=== PATIENT | female | born 1930 | race Caucasian/White ===

== ENCOUNTER → 2016-07-08 10:10 | Outpatient (CLI) | payer MEDICARE, BC | END | disposition home or self-care (01) | LOC: D.US 10:00 | DX: N63 Unspecified lump in breast (principal) ==

== ENCOUNTER 2017-08-16 21:43 | Inpatient (IN) | payer MEDICARE, BC ==
[~2017-08-16] VITALS: Ht 170.2 cm; Wt 61.4 kg
--- NOTE | ~2017-08-16 | HEMODYNAMI ---
PATIENT:LAUREN SOSA MEDICAL RECORD: [id number] : [birth year] LOCATION:[facility] D.2118 ADMISSION DATE: 08/17/17 Generatedon:08/17/201712:10 Patient name: LAUREN SOSA Patient #: [id number] SSN: : Date of study: 08/17/2017 Page: Of Hemodynamic Procedure Report Patient Data Patient Demographics Procedure consent was obtained First Name: LAUREN Gender: Female Last Name: IAN : 1930 Patient #: [id number] Age: 87 year(s) Race: Unknown Additional ID: [id number] Contact details [address]: [address] [place] [address] [address] State: [place] City: [place] Zip code: [address] Admission Admission Data Admission Date: 08/17/2017 Admission Time: 0:27 Room #: D.2118 Procedure Procedure Types Cath Procedure Diagnostic Procedure PPM/ICD PPM Dual Implant Procedure Description Procedure Date Procedure Date: 08/17/2017 Procedure Start Time: 11:40 Procedure End Time: 12:08 Procedure Staff Name Function Artur Terry MD Performing Physician Dmitry Beltran RT Monitor Ken Omalley RN Nurse Joanne Mukherjee RT Scrub Procedure Data Cath Procedure Fluoroscopy Diagnostic fluoroscopy Total fluoroscopy Time: 2.9 time: 2.9 min min Diagnostic fluoroscopy Total fluoroscopy dose: 34 dose: 34 mGy mGy Contrast Material Contrast Material Type Amount (ml) Visipaque 270 10 Estimated blood loss: 5 ml Procedure Complications No complications Procedure Medications Medication Administration Route Dosage Oxygen etCO2 Nasal cannula 2 l/min Ancef (1Gm/50ml NS) I.V.P.B 1 g Ancef Irrigation Topical 1 g (1gm/500ml NS) Fentanyl I.V. 50 mcg Versed I.V. 1 mg Fentanyl I.V. 50 mcg Versed I.V. 1 mg Hemodynamics Rest Heart Rate: 34 (bpm) Snapshots Pre Cath Intra NCS Post Cath Vital Signs Time Heart Resp SPO2 etCO2 NIBP (mmHg) Rhythm Pain Sedation Rate (ipm) (%) (mmHg) Status Level (bpm) 11:26:23 34 18 0 184/67(129) NSR 0 (11) 10(A) , No pain 11:30:33 33 15 0 169/65(121) NSR 0 (11) 10(A) , No pain 11:35:34 34 19 94 0 179/68(130) NSR 0 (11) 10(A) , No pain 11:39:34 37 17 96 0 166/87(118) NSR 0 (11) 9(A) , No pain 11:44:56 32 17 98 0 148/58(99) NSR 0 (11) 9(A) , No pain 11:53:03 31 17 95 0 145/56(98) NSR 0 (11) 9(A) , No pain 12:05:18 72 19 95 0 181/87(137) NSR 0 (11) 9(A) , No pain 12:09:45 89 17 94 0 180/100(138) NSR 0 (11) 10(A) , No pain Medications Time Medication Route Dose Verified Delivered Reason Notes Effective ness by by 11:25:02 Oxygen etCO2 2 Artur Ken Per Nasal l/min Harrison Omalley RN physician cannula 11:30:24 Ancef I.V.P.B 1 g Artur Ken Per (1Gm/50ml Harrison Omalley RN physician NS) 11:30:38 Ancef Topical 1 g Artur Ken used for Irrigation Harrison Omalley RN procedure (1gm/500ml NS) 11:37:18 Fentanyl I.V. 50 Artur Ken for mcg Harrison Omalley RN sedation 11:37:26 Versed I.V. 1 mg Artur Ken for Harrison Omalley RN sedation 11:43:05 Fentanyl I.V. 50 Artur Ken for mcg Harrison Omalley RN sedation 11:43:09 Versed I.V. 1 mg Artur Ken for Harrison Omalley RN sedation Procedure Log Time Note 10:50:13 Ken Omalley RN sent for patient. Start room use. 11:04:22 Time tracking: Regular hours (M-F 7:00 - 5:00) 11:04:26 Plan of Care:Hemodynamics will remain stable., Cardiac rhythm will remain stable., Comfort level will be maintained., Respiratory function will remain adequate., Patient/ family verbilizes understanding of procedure., Procedure tolerated without complication., Recovers from procedure without complications.. 11:04:31 Patient received from PCU to CCL 3 Alert and oriented. Tansferred to table in Supine position. 11:04:32 Warm blankets applied, and tony hugger turned on for patient comfort. 11:04:32 Correct patient and procedure confirmed by team. 11:04:33 Signed procedure consent form obtained from patient. 11:04:34 ECG and BP/O2 sat monitors applied to patient. 11:04:35 Full Disclosure recording started 11:10:32 Vital chart was started 11:14:04 Vital chart was stopped 11:15:26 [employer] sales representative advertising Dar CruzOksana present for procedure. 11:15:36 Baseline sample Acquired. 11:15:41 Rhythm: sinus bradycardia 11:15:48 H&P Date Dictated: 08/16/2017 Within 30 days and on chart.. 11:15:48 Pre-procedure instructions explained to patient. 11:15:49 Pre-op teaching completed and patient verbalized understanding. 11:15:50 Family in patients room. 11:23:46 Vital chart was started 11:25:02 Oxygen 2 l/min etCO2 Nasal cannula was administered by Ken Omalley RN; Per physician; 11:30:24 Ancef (1Gm/50ml NS) 1 g I.V.P.B was administered by Ken Omalley RN; Per physician; 11:30:38 Ancef Irrigation (1gm/500ml NS) 1 g Topical was administered by Ken Omalley RN; used for procedure; 11:30:52 Patient NPO since Midnight. 11:30:53 Is the patient allergic to Iodine/contrast media? No. 11:31:06 Is patient on blood thinner?No 11:31:08 Patient diabetic? No. 11:31:10 Previous problem with sedation/anesthesia? No ? 11:31:10 Snore? No 11:31:11 Sleep apnea? No 11:31:12 Deviated septum? No 11:31:13 Opens mouth fully? Yes 11:31:13 Sticks out tongue? Yes 11:31:15 Airway obstruction? No ? 11:31:16 Dentures? No ? 11:31:19 Patient pain scale 0/10 ?. 11:31:27 IV right forearm D/C'd due to infiltration. 11:31:59 IV started by Ken Omalley RN inleft forearm with a 20 gauge IV catheter with 0.9% NaCl at KVO. 11:32:10 IV started by Ken Omalley RN inright antecubital with a 18 gauge IV catheter with 0.9% NaCl at KVO. 11:32:12 IV CATHETER 18G opened to sterile field. 11:32:12 IV Extension Set opened to sterile field. 11:32:12 IV CATHETER 20g opened to sterile field. 11:32:12 Lab results completed and on chart. 11:32:25 Left chest area was prepped with chlora-prep and draped in sterile fashion 11:32:27 Alarms reviewed by R. N. 11:32:27 Sharps counted by scrub and verified by R.N. 11:32:40 --------ALL STOP TIME OUT------ 11:32:41 Final Timeout: patient, procedure, and site verified with staff and physician. All members of the team are in agreement. 11:32:45 Left chest site verified by team. 11:32:51 Physical assessment completed. ASA score P 2 - A patient with mild systemic disease as per Artur Terry MD. 11:32:55 Sedation plan: IV Moderate Sedation Medication:Versed, Fentanyl 11:37:18 Fentanyl 50 mcg I.V. was administered by Ken Omalley RN; for sedation; 11:37:26 Versed 1 mg I.V. was administered by Ken Omalley RN; for sedation; 11:39:48 Pre sharps counted by scrub and verified by RN: Sutures: 2; Sponges: 5; Stick needles: 4; Skin needles: 2; Blade: 1; Cautery: 1 11:39:53 Grounding pad site Left thigh. 11:39:54 Grounding pad site free from injury. 11:39:58 Procedure started. 11:40:01 Lidocaine 2% was administered to left subclavicular area by Artur Terry MD . 11:40:17 Incision made to left subclavicular area. 11:40:22 Use device set [facility] 11:40:38 Cautery Pushbutton Pencil opened to sterile field. 11:40:39 Cautery Tip Motor Vehicle Examiner opened to sterile field. 11:40:42 Tegaderm 4 x 4 (1626W) opened to sterile field. 11:40:43 Stapler Skin 35W Proximate Plus (PMW35) opened to sterile field. 11:40:47 Immobilizer Large opened to sterile field. 11:40:49 2-0 Vicryl Plus [id number] opened to sterile field. 11:40:50 2-0 Silk 685H opened to sterile field. 11:42:25 MICROPUNCTURE 4FR [employer] ([id number]) opened to sterile field. 11:43:05 Fentanyl 50 mcg I.V. was administered by Ken Omalley RN; for sedation; 11:43:09 Versed 1 mg I.V. was administered by Ken Omalley RN; for sedation; 11:43:32 Generator pocket made/opened. 11:43:40 MICROPUNCTURE 4FR Cook ([id number]) opened to sterile field. 11:44:04 Medtronic Advisa MRI PPM Dual Generator [id number] opened to sterile field. 11:44:05 Medtronic 4074-52 PPM Lead opened to sterile field. 11:44:06 Medtronic 5076-45 PPM Lead opened to sterile field. 11:44:13 Access obtained with 4Fr micropunture. 11:44:20 Left subclavian vein accessed with 7Fr Peel Away Sheath. 11:46:12 Access obtained with 4Fr micropunture. 11:46:18 Ventricular lead inserted and advanced. 11:46:36 Left subclavian vein accessed with 7Fr Peel Away Sheath. 11:46:40 Atrial lead inserted and advanced. 11:46:43 Peel-a-way sheath was split and removed. 11:46:43 Peel-a-way sheath was split and removed. 11:48:38 Ventricular lead positioned. 11:48:41 Ventricular lead tested. 11:53:46 Atrial lead positioned. 11:53:48 Atrial lead tested. 11:58:14 Ventricular lead attachment was completed with 2-0 silk. 11:58:19 Atrial lead attachment was completed with 2-0 silk. 12:01:30 PPM Dual was attached to lead(s) and inserted into pocket. 12:01:34 Device pocket was irrigated with Ancef. 12:01:38 Generator was sutured in place with 2-0 silk. 12:03:55 Subcutaneous closure was completed with 2-0 vicryl. 12:05:11 Skin closure was completed with 35mm [place]. 12:05:29 Procedure ended.(Physican Out) 12:06:04 Post sharps counted by scrub and verified by RN: Sutures: 2; Sponges: 5; Stick needles: 4; Skin needles: 2; Blade: 1; Cautery: 1 12:06:15 Fluoroscopy time 02.90 minutes. 12:06:19 Fluoroscopy dose: 34 mGy 12:06:19 Flurop Dose total: 34 12:06:25 Contrast amount:Visipaque 270 10ml. 12:06:49 Sharps counted by scrub and verified by R.N. 12:06:53 Insertion/operative site no bleeding no hematoma. 12:07:00 Post-op/insertion site Left Chest area dressed using a 4 x 4 and Tegaderm. 12:07:11 Post-procedure physical assessment completed. ASA score P 2 - A patient with mild systemic disease as per Artur Terry MD. 12:07:14 Post procedure rhythm: paced 12:07:16 Estimated blood loss: 5 ml 12:07:17 Post procedure instruction explained to patient.Patient verbalizes understanding. 12:07:18 Patient needs reinforcement of post procedure teaching. 12:07:25 Procedure and supply charges have been captured, reviewed, submitted and are correct. 12:07:27 Procedure Complication : No complications 12:08:02 See physician's report for complete and final results. 12:08:28 Report given to PCU. 12:08:31 Patient transfered to PCU with Bed. 12:08:39 Procedure ended. 12:08:39 Full Disclosure recording stopped 12:10:31 End room use (Document Last) 12:10:46 Vital chart was stopped Device Usage Item Name Manufacture Quantity Catalog Hospital Part Current Minima l Lot# / Number Charge Number Stock Stock Serial# Code Cautery Microtek 1 [id number] 63350 [id number] 5 [employer] Pencil Cautery Tip Microtek 1 [id number] 293076 103593 706597 5 [employer] Tegaderm 4 x 3M 1 1626W 911906 140337 214591 5 4 (1626W) Stapler Skin Unknown 1 PMW35 075121 859354 773143 5 35W Proximate Plus (PMW35) Immobilizer Cardinal 1 [id number] 736552 629163 572512 5 Large Health 2-0 Vicryl Ethicon 1 [id number] 188232 642343 795961 5 Plus PSE609 2-0 Silk 685H Ethicon 1 685H 284971 04523 460480 5 MICROPUNCTURE [facility] 2 [id number] 409996 043316 513513 5 4FR [place] (H96334) Medtronic Medtronic 1 A2DR01 282569 609739 5 [id number] Advisa MRI EXP PPM Dual 10-04-18 Generator A2DR01 Medtronic Medtronic 1 4074-52 138097 659758 5 [id number] 4074-52 PPM EXP Lead 01-28-19 Medtronic Medtronic 1 5076-45 535546 101635 5 [id number] 5076-45 PPM EXP Lead 19 IV CATHETER B. Shoemaker 1 [id number] 484303 364022 343062 5 18G IV CATHETER B. Shoemaker 1 7101875-91 551396 294632 679505 5 20g IV Extension Hospira 1 35647-00 990266 46696 421720 5 Set Signature Audit Clyman Stage Time Signature Unsigned Intra-Procedure 08/17/2017 Dmitry Beltran 12:10:42 PM RT(R) Signatures Monitor : Dmitry Beltran RT Signature : Date : Time : [facility] [address] [place] [address]
[2017-08-16 23:29] LABS: BASOPHILS 0.5 % (0-2); EOSINOPHILS 1.1 % (0-7); HEMATOCRIT 24.2 % (36.0-48.0); HEMOGLOBIN 7.6 g/dL (12-16); IMMATURE GRANULOCYTES 0.5 % (0-5); MCH 24.3 pg (26.0-34.0); MCHC 31.4 g/dL (31.0-37.0); MCV 77.3 fL (80.0-100.0); MEAN PLATELET VOLUME 9.6 fL (7.4-10.4); MONOCYTES 10.6 % (2-11); NEUTROPHILS 53.3 % (40-80); PLATELET COUNT 273 10x3/uL (130-400); RBC 3.13 10x6/uL (4.00-5.40); RDW 16.1 % (11.5-14.5); WBC 6.4 10x3/uL (4.8-10.8)
[2017-08-16 23:52] LABS: CALC OSMOLALITY 285 mosm/kg (275-300); CALCIUM 8.7 mg/dL (8.5-10.1); CARBON DIOXIDE 22.6 mmol/L (21.0-32.0); CHLORIDE - SERUM 105 mmol/L (98-107); CREATINE KINASE 60 UL (21-215); CREATININE - SERUM 2.3 mg/dL (0.6-1.3); GLUCOSE 109 mg/dL (74-106); POTASSIUM - SERUM 4.9 mmol/L (3.5-5.1); SODIUM 136 mmol/L (136-145); UREA NITROGEN 50 mg/dL (7-18); eGFR NON AFRICAN AMERICAN 21 mL/min (90-120)
[2017-08-17] LABS: TROPONIN-I < 0.017 ng/mL (0.000-0.060)
[2017-08-17] MEDS ORDERED: MAXZIDE 75/501 TAB PO (01:37)
[2017-08-17] MEDS ORDERED: ATIVAN0.5 MG PO (01:37)
[2017-08-17] MEDS ORDERED: CATAPRES0.1 MG PO (01:37)
[2017-08-17] MEDS ORDERED: MECLIZINE HCL25 MG PO (01:38)
[2017-08-17] MEDS ORDERED: ZANTAC150 MG PO (01:38)
[2017-08-17] MEDS ORDERED: ULTRAM50 MG PO (01:38)
[2017-08-17 01:43] VITALS: BP 133/53; Ht 170.2 cm; Wt 61.4 kg
[2017-08-17 04:00] VITALS: BP 122/60
[2017-08-17 06:21] LABS: BASOPHILS 0.6 % (0-2); EOSINOPHILS 1.6 % (0-7); HEMATOCRIT 24.3 % (36.0-48.0); HEMOGLOBIN 7.6 g/dL (12-16); IMMATURE GRANULOCYTES 0.3 % (0-5); LYMPHOCYTES 33.7 % (15-50); MCH 24.1 pg (26.0-34.0); MCHC 31.3 g/dL (31.0-37.0); MCV 77.1 fL (80.0-100.0); MEAN PLATELET VOLUME 10.1 fL (7.4-10.4); MONOCYTES 10.7 % (2-11); NEUTROPHILS 53.1 % (40-80); PLATELET COUNT 292 10x3/uL (130-400); RBC 3.15 10x6/uL (4.00-5.40); RDW 16.2 % (11.5-14.5); WBC 6.9 10x3/uL (4.8-10.8)
[2017-08-17 06:47] LABS: ALBUMIN 3.2 g/dL (3.4-5.0); ALKALINE PHOSPHATASE 59 U/L (46-116); ALT (SGPT) 132 U/L (10-68); CALC OSMOLALITY 288 mosm/kg (275-300); CALCIUM 8.6 mg/dL (8.5-10.1); CARBON DIOXIDE 22.9 mmol/L (21.0-32.0); CHLORIDE - SERUM 108 mmol/L (98-107); CREATINE KINASE 56 UL (21-215); GLUCOSE 96 mg/dL (74-106); MAGNESIUM - SERUM 2.2 mg/dL (1.8-2.4); POTASSIUM - SERUM 4.8 mmol/L (3.5-5.1); PROTEIN - SERUM 6.3 g/dL (6.4-8.2); SODIUM 139 mmol/L (136-145); TROPONIN-I < 0.017 ng/mL (0.000-0.060); UREA NITROGEN 44 mg/dL (7-18); eGFR NON AFRICAN AMERICAN 25 mL/min (90-120)
[2017-08-17 09:25] VITALS: BP 149/89
[2017-08-17 20:00] VITALS: BP 164/79
[2017-08-17 22:21] LABS: HEMATOCRIT 32.9 % (36.0-48.0); HEMOGLOBIN 10.6 g/dL (12-16)
[2017-08-18] VITALS: BP 137/63
[2017-08-18 04:00] VITALS: BP 128/66
[2017-08-18 04:18] LABS: BASOPHILS 0.3 % (0-2); EOSINOPHILS 2.4 % (0-7); HEMATOCRIT 29.9 % (36.0-48.0); HEMOGLOBIN 9.7 g/dL (12-16); IMMATURE GRANULOCYTES 0.3 % (0-5); LYMPHOCYTES 23.5 % (15-50); MCH 25.5 pg (26.0-34.0); MCHC 32.4 g/dL (31.0-37.0); MCV 78.5 fL (80.0-100.0); MEAN PLATELET VOLUME 8.9 fL (7.4-10.4); MONOCYTES 9.5 % (2-11); RDW 15.7 % (11.5-14.5); WBC 7.8 10x3/uL (4.8-10.8)
[2017-08-18 04:38] LABS: ANION GAP 12.1 mmol/L (8-16); BILIRUBIN - TOTAL 0.56 mg/dL (0.2-1.3); CALCIUM 8.7 mg/dL (8.5-10.1); CARBON DIOXIDE 26.8 mmol/L (21.0-32.0); PLATELET COUNT 212 10x3/uL (130-400); POTASSIUM - SERUM 3.9 mmol/L (3.5-5.1); PROTEIN - SERUM 6.4 g/dL (6.4-8.2); RBC 3.81 10x6/uL (4.00-5.40)
[2017-08-18 08:00] VITALS: BP 127/79
[2017-08-18 11:02] VITALS: BP 122/64
== END 2017-08-18 11:40 | DRG 244 ==
LOC: D.ER 21:43 → D.M2 08-17 00:27
PROVIDERS: Family Medicine; Internal Medicine Cardiovascular Disease
PROC: 02H63JZ Insertion of Pacemaker Lead into Right Atrium, Percutaneous Approach (ICD-10-PCS; 2017-08-17)
PROC: 02HK3JZ Insertion of Pacemaker Lead into Right Ventricle, Percutaneous Approach (ICD-10-PCS; 2017-08-17)
PROC: 0JH606Z Insertion of Pacemaker, Dual Chamber into Chest Subcutaneous Tissue and Fascia, Open Approach (ICD-10-PCS; principal; 2017-08-17 11:30)
DX: I44.2 Atrioventricular block, complete (principal); R00.1 Bradycardia, unspecified; F03.90 Unspecified dementia, unspecified severity, without behavioral disturbance, psychotic disturbance, mood disturbance, and anxiety; K21.9 Gastro-esophageal reflux disease without esophagitis; I10 Essential (primary) hypertension; D64.9 Anemia, unspecified

== ENCOUNTER 2017-08-30 09:37 | Inpatient (IN) | payer MEDICARE, BC ==
[~2017-08-30] VITALS: Ht 170.2 cm; Wt 63.5 kg
[~2017-08-30 09:37] MED LIST: ATIVAN0.5 MG PO; CATAPRES0.1 MG PO; MAXZIDE 75/501 TAB PO; MECLIZINE HCL25 MG PO; ULTRAM50 MG PO; ZANTAC150 MG PO
[2017-08-30] MEDS ORDERED: VITAMIN D250000 UNIT PO (09:45)
[2017-08-30] MEDS ORDERED: FERROUS SULFAT325 MG PO (09:46)
[2017-08-30] MEDS ORDERED: FUROSEMIDE20 MG PO (09:46)
[2017-08-30] MEDS ORDERED: SENNA PLUS TA1 UDTAB PO (09:48)
[2017-08-30] MEDS ORDERED: K-TAB10 MEQ PO (09:48)
[2017-08-30 10:06] LABS: BASOPHILS 0.2 % (0-2); EOSINOPHILS 0.4 % (0-7); HEMATOCRIT 32.2 % (36.0-48.0); HEMOGLOBIN 10.2 g/dL (12-16); IMMATURE GRANULOCYTES 0.2 % (0-5); LYMPHOCYTES 14.3 % (15-50); MCH 26.1 pg (26.0-34.0); MCHC 31.7 g/dL (31.0-37.0); MCV 82.4 fL (80.0-100.0); MEAN PLATELET VOLUME 9.6 fL (7.4-10.4); MONOCYTES 5.7 % (2-11); NEUTROPHILS 79.2 % (40-80); PLATELET COUNT 191 10x3/uL (130-400); RBC 3.91 10x6/uL (4.00-5.40); WBC 8.2 10x3/uL (4.8-10.8)
[2017-08-30 10:18] LABS: APTT 30.4 SECONDS (22.8-39.4); INR 1.25 (0.85-1.17); PROTIME 15.2 SECONDS (11.6-15.0)
[2017-08-30 10:19] LABS: ALBUMIN 3.3 g/dL (3.4-5.0); ALKALINE PHOSPHATASE 75 U/L (46-116); ALT (SGPT) 233 U/L (10-68); BILIRUBIN - TOTAL 0.58 mg/dL (0.2-1.3); CALC OSMOLALITY 274 mosm/kg (275-300); CALCIUM 8.7 mg/dL (8.5-10.1); CARBON DIOXIDE 27.6 mmol/L (21.0-32.0); CHLORIDE - SERUM 101 mmol/L (98-107); CREATININE - SERUM 1.4 mg/dL (0.6-1.3); GLUCOSE 130 mg/dL (74-106); PROTEIN - SERUM 6.7 g/dL (6.4-8.2); SODIUM 136 mmol/L (136-145); UREA NITROGEN 16 mg/dL (7-18); eGFR NON AFRICAN AMERICAN 38 mL/min (90-120)
[2017-08-30 10:35] LABS: CKMB 1.8 U/L (0.0-3.6); CREATINE KINASE 99 UL (21-215); PRO BNP 13060 pg/mL (0-450)
[2017-08-30 10:42] LABS: TROPONIN-I 0.167 ng/mL (0.000-0.060)
[2017-08-30 10:55] LABS: D-DIMER-QUANTITATIVE 4.63 ug/mLFEU (0.20-0.54)
[2017-08-30 11:30] VITALS: BP 149/80
[2017-08-30 13:00] LABS: CKMB 2.6 U/L (0.0-3.6); CREATINE KINASE 112 UL (21-215)
[2017-08-30 13:02] LABS: TROPONIN-I 0.249 ng/mL (0.000-0.060)
[2017-08-30 13:29] VITALS: BP 163/99; BMI 21.9
[2017-08-30 15:58] VITALS: BP 108/40; BP 151/82
[2017-08-30 18:59] LABS: CKMB 2.9 U/L (0.0-3.6); CREATINE KINASE 127 UL (21-215)
[2017-08-30 19:00] LABS: TROPONIN-I 0.195 ng/mL (0.000-0.060)
[2017-08-30 20:00] VITALS: BP 116/70
[2017-08-31] VITALS: BP 121/69
[2017-08-31 02:02] LABS: CKMB 2.1 U/L (0.0-3.6); CREATINE KINASE 116 UL (21-215)
[2017-08-31 02:03] LABS: TROPONIN-I 0.168 ng/mL (0.000-0.060)
[2017-08-31 04:00] VITALS: BP 124/79
[2017-08-31 05:30] LABS: BASOPHILS 0.7 % (0-2); EOSINOPHILS 2.7 % (0-7); HEMATOCRIT 30.1 % (36.0-48.0); HEMOGLOBIN 9.6 g/dL (12-16); IMMATURE GRANULOCYTES 0.2 % (0-5); LYMPHOCYTES 34.2 % (15-50); MCH 25.9 pg (26.0-34.0); MCHC 31.9 g/dL (31.0-37.0); MCV 81.4 fL (80.0-100.0); MEAN PLATELET VOLUME 9.4 fL (7.4-10.4); MONOCYTES 10.6 % (2-11); NEUTROPHILS 51.6 % (40-80); PLATELET COUNT 194 10x3/uL (130-400); RDW 18.2 % (11.5-14.5)
[2017-08-31 05:38] LABS: WBC 5.6 10x3/uL (4.8-10.8)
[2017-08-31 05:51] LABS: ANION GAP 9.5 mmol/L (8-16); BILIRUBIN - TOTAL 0.61 mg/dL (0.2-1.3); CALCIUM 8.9 mg/dL (8.5-10.1); CARBON DIOXIDE 32.6 mmol/L (21.0-32.0); CREATININE - SERUM 1.4 mg/dL (0.6-1.3); POTASSIUM - SERUM 4.1 mmol/L (3.5-5.1); PROTEIN - SERUM 6.2 g/dL (6.4-8.2)
[2017-08-31 08:42] VITALS: BP 124/68
[2017-08-31 12:15] VITALS: BP 95/60
[2017-08-31 15:41] VITALS: BP 130/76
[2017-08-31 21:40] VITALS: BP 140/59
[2017-09-01 04:00] VITALS: BP 123/70
[2017-09-01 08:31] VITALS: BP 137/72
[2017-09-01 11:53] VITALS: BP 140/81
[2017-09-01 13:21] VITALS: Ht 170.2 cm; Wt 63.5 kg
[2017-09-01 16:17] VITALS: BP 149/89
[2017-09-01 20:32] VITALS: BP 128/68
[2017-09-02 01:16] VITALS: BP 126/72
[2017-09-02 04:00] VITALS: BP 133/72
[2017-09-02 06:02] LABS: ANION GAP 12.1 mmol/L (8-16); CARBON DIOXIDE 33.4 mmol/L (21.0-32.0); CREATININE - SERUM 1.5 mg/dL (0.6-1.3); MAGNESIUM - SERUM 1.6 mg/dL (1.8-2.4); PHOSPHOROUS 3.5 mg/dL (2.5-4.9); POTASSIUM - SERUM 3.5 mmol/L (3.5-5.1)
[2017-09-02] MEDS ORDERED: LASIX40 MG PO (07:58)
[2017-09-02 08:18] VITALS: BP 90/51
[2017-09-02 11:17] VITALS: BP 110/67
== END 2017-09-02 12:58 | DRG 292 ==
LOC: D.ER 09:37 → D.M2 12:12 → D.EDHOLD 12:12 → D.M2 12:24
PROVIDERS: Family Medicine
DX: I11.0 Hypertensive heart disease with heart failure (principal); J44.1 Chronic obstructive pulmonary disease with (acute) exacerbation; I24.8 Other forms of acute ischemic heart disease; I50.21 Acute systolic (congestive) heart failure; G30.9 Alzheimer's disease, unspecified; F02.80 Dementia in other diseases classified elsewhere, unspecified severity, without behavioral disturbance, psychotic disturbance, mood disturbance, and anxiety; F32.9 Major depressive disorder, single episode, unspecified; K21.9 Gastro-esophageal reflux disease without esophagitis; Z95.0 Presence of cardiac pacemaker; D64.9 Anemia, unspecified; E55.9 Vitamin D deficiency, unspecified; K59.09 Other constipation

== ENCOUNTER → 2017-12-12 09:37 | Outpatient (CLI) | payer MEDICARE, BC ==
[2017-09-01 13:21] VITALS: BMI 21.9
--- NOTE | ~2017-12-12 | EC ---
PATIENT:LAUREN SOSA DATE OF SERVICE: 12/12/17 SEX: F MEDICAL RECORD: [id number] DATE OF : [birth year] LOCATION:D[facility] AGE OF PATIENT: 87 ADMISSION DATE: 12/12/17 REFERRING PHYSICIAN: INTERPRETING PHYSICIAN: BRENDAN OSORIO MD ECHOCARDIOGRAM REPORT ECHO CHARGES 4 ECHO COMPLETE Date: 12/12/17 CLINICAL DIAGNOSIS: CHF ECHOCARDIOGRAPHIC MEASUREMENTS (adult normal given) AC root (d.<3.7cm) 2.9 cm LV Septum d (<1.2 cm> 1.2 cm Valve Excursion 1.7 cm LV Septum (systole) 1.6 cm Left Atria (s.<4.0cm> 3.2 cm LVPW d(<1.2cm) 1.2 cm RV (d.<2.3cm) 2.7 cm LVPW (sytole) 1.8 cm LV diastole(<5.6CM) 4.9 cm MV E-F(>70mm/sec) cm LV systole 2.8 cm LVOT Diameter 1.6 cm MV exc.(>10mm) cm Est.ejection fraction (50-75%) % DOPPLER: LVIT cm/sec A 110 cm/sec E 67.0 cm/sec LA cm/sec RVSP 36.2 mmHg LVOT 89.0 cm/sec AOP1/2T m/s Asc. Ao 185 cm/sec RVOT 62.0 cm/sec RA cm/sec PA 88.0 cm/sec AV Gradient Peak 14.0 mmHg AV Mean 6.9 mmHg AV Area 1.1 cm MV Gradient Peak 7.0 mmHg MV Mean 2.8 mmHg MV Area cm COMMENTS: Dry Kiln Feeder: Zelda CASILLASOE Laundry Supervisor: Jf Osorio TAPE# PACS Pericardial Effusion N DATE OF SERVICE: PROCEDURE: Transthoracic echocardiogram. FINDINGS: 1. Left ventricle shows moderate left ventricular hypertrophy that is concentric in nature with diastolic dysfunction and ejection fraction of 50% to 55% with no obvious wall motion abnormalities. 2. The right ventricle is normal size, shape, structure, and function. 3. The left atrium appears to be normal. ECHOCARDIOGRAM REPORT [id number] LAUREN SOSA 4. The aortic valve is sclerotic with trace aortic insufficiency without any evidence of aortic stenosis. 5. The mitral valve has moderate mitral regurgitation. 6. The tricuspid valve has mild tricuspid regurgitation. RVSP is 36 mmHg. 7. The right atrium has mild enlargement. There is no pericardial effusion. CONCLUSIONS: The patient has evidence of mild hypertensive heart disease and moderate mitral regurgitation. TRANSINT:[id number] Voice Confirmation ID: [id number] DOCUMENT ID: [id number] BRENDAN OSORIO MD at 0849 CC: [id number] DICTATION DATE: 12/12/17 1347 PATTERNMAKER WOOD: 12/12/17 1355 DEP CLI 12/12/17 [id number] [place] [address]
[~2017-12-12 09:37] MED LIST changes: +FERROUS SULFAT325 MG PO; +FUROSEMIDE20 MG PO; +K-TAB10 MEQ PO; +LASIX40 MG PO; +SENNA PLUS TA1 UDTAB PO; +VITAMIN D250000 UNIT PO
== END | disposition home or self-care (01) ==
LOC: D.ECHO 12-03 13:00
DX: I50.30 Unspecified diastolic (congestive) heart failure (principal)